=== PATIENT | female | born 1995 | race Two or more races ===

== ENCOUNTER 2019-03-08 12:30 | Emergency (ER) | payer OTHER ==
[2019-03-08 12:44] VITALS: BP 136/79
[2019-03-08] MEDS ORDERED: NORMAL SALINE 1000 ML 1,000 ML IV ONE (13:31)
[2019-03-08] MEDS ORDERED: ONDANSETRON HCL INJ/PF 4 MG/2 ML SDV IV ONE (13:31)
[2019-03-08] MEDS ORDERED: DICYCLOMINE HCL 20 MG TABLET PO ONE (13:31)
--- NOTE | 2019-03-08 13:33 | ER Document Report ---
ED Medical Screen (RME) - General Chief Complaint: Diarrhea Stated Complaint: BODY ACHES,DIARRHEA,NAUSEA Time Seen by Provider: 03/08/19 13:28 - HPI Notes: 03/08/19 13:31 Patient is a 23-year-old female with no significant past medical history who presents c/o n/v/d intermittent cramps x1-2 days. No fever, cp, sob, cough. I have treated and performed a rapid initial assessment of this patient. A comprehensive ED assessment and evaluation of the patient, analysis of test results and completion of medical decision making process will be conducted by additional ED providers. PHYSICAL EXAMINATION: GENERAL: Well-appearing, well-nourished and in no acute distress. A&Ox4. Answers questions appropriately. Abdomen: Limited exam in triage, grossly nontender and soft throughout. - Related Data Allergies/Adverse Reactions: No Known Allergies Allergy (Verified 03/08/19 13:28) Physical Exam - Vital signs Vitals: Temp Pulse Resp BP Pulse Ox 98.8 F 110 H 18 136/79 H 99 03/08/19 12:43 03/08/19 12:43 03/08/19 12:43 03/08/19 12:43 03/08/19 12:43 Course - Vital Signs Vital signs: Temp Pulse Resp BP Pulse Ox 98.8 F 110 H 18 136/79 H 99 03/08/19 12:43 03/08/19 12:43 03/08/19 12:43 03/08/19 12:43 03/08/19 12:43
--- NOTE | 2019-03-08 13:37 | ER Document Report ---
ED General - General Chief Complaint: Nausea/Vomiting/Diarrhea Stated Complaint: BODY ACHES,DIARRHEA,NAUSEA Time Seen by Provider: 03/08/19 13:28 Mode of Arrival: Ambulatory Information source: Patient - HPI Onset/Duration: Gradual Quality of pain: No pain Severity: Moderate Pain Level: 0 Associated symptoms: Body/muscle aches, Diarrhea, Nausea, Vomiting, Weakness Relieved by: Denies Similar symptoms previously: No Recently seen / treated by doctor: No Notes: Patient reports that post New Year's [place] celebration the following day she noted generalized weakness nausea vomiting and diarrhea. Denies any high fever or chills. Denies any pain at this time. Patient felt generally weak. - Related Data Allergies/Adverse Reactions: No Known Allergies Allergy (Verified 03/08/19 13:28) Past Medical History - Social History Smoking Status: Current Every Day Smoker Frequency of alcohol use: Social Lives with: Family Family History: Reviewed & Not Pertinent Patient has suicidal ideation: No Patient has homicidal ideation: No Review of Systems - Review of Systems Constitutional: See HPI, Malaise, Weakness Gastrointestinal: See HPI, Diarrhea, Nausea, Vomiting Physical Exam - Vital signs Vitals: Temp Pulse Resp BP Pulse Ox 98.8 F 110 H 18 136/79 H 99 03/08/19 12:43 03/08/19 12:43 03/08/19 12:43 03/08/19 12:43 03/08/19 12:43 Interpretation: Normal - General General appearance: Appears well, Alert - HEENT Head: Normocephalic, Atraumatic Eyes: Normal Pupils: PERRL - Respiratory Respiratory status: No respiratory distress Chest status: Nontender Breath sounds: Normal Chest palpation: Normal - Cardiovascular Rhythm: Regular Heart sounds: Normal auscultation Murmur: No - Abdominal Inspection: Normal Distension: No distension Bowel sounds: Normal Tenderness: Nontender Organomegaly: No organomegaly - Back Back: Normal, Nontender - Extremities General upper extremity: Normal inspection, Nontender, Normal color, Normal ROM, Normal temperature General lower extremity: Normal inspection, Nontender, Normal color, Normal ROM, Normal temperature, Normal weight bearing. No: Shahram's sign - Neurological Neuro grossly intact: Yes Cognition: Normal Orientation: AAOx4 [place] Coma Scale Eye Opening: Spontaneous [place] Coma Scale Verbal: Oriented [place] Coma Scale Motor: Obeys Commands [place] Coma Scale Total: 15 Speech: Normal Motor strength normal: LUE, RUE, LLE, RLE Sensory: Normal - Psychological Associated symptoms: Normal affect, Normal mood - Skin Skin Temperature: Warm Skin Moisture: Dry Skin Color: Normal Course - Re-evaluation Re-evalutation: 03/08/19 17:10 After IV hydration of liter of normal saline 500 mL bag of D5 LR patient is feeling much better ambulatory in the emergency department with not showing any signs of weakness or distress. Patient a stood up without having any dizziness or ataxia. Patient states she feels much better and is ready to go home at this time. - Vital Signs Vital signs: Temp Pulse Resp BP Pulse Ox 98.8 F 110 H 18 136/79 H 99 03/08/19 12:43 03/08/19 12:43 03/08/19 12:43 03/08/19 12:43 03/08/19 12:43 - Laboratory Result Diagrams: 03/08/19 13:50 03/08/19 13:50 Laboratory results interpreted by me: 03/08/19 03/08/19 13:50 13:50 RDW 16.1 H Urine Protein 100 H Urine Ketones 80 H Urine Blood LARGE H Leukocyte Esterase Rfl LARGE H Discharge - Discharge Clinical Impression: Dehydration, Gastroenteritis and colitis, viral Condition: Stable Disposition: HOME, SELF-CARE Additional Instructions: Gastroenteritis You most likely have gastroenteritis. This is an irritation of the stomach and intestinal tract. It's usually caused by a virus, but can also be caused by bacteria, toxins that cause food poisoning, or excessive alcohol intake. Symptoms may include fever, painful abdominal cramps, nausea, vomiting, and diarrhea. Start with small amounts (two to six ounces) of clear liquids (soft drinks, herb teas, broth, etc). Try to take fluids frequently even if you are vomiting, to prevent dehydration. When liquids are being consumed successfully, advance to small amounts of bland food (mashed potato, toast) for 6 - 12 hours. Gastroenteritis rarely requires medication. It goes away by itself. Use good handwashing so you don't spread germs. Wash underwear in very hot water. If symptoms are severe, talk to the doctor. Call your physician if blood appears in your vomitus or stool, if vomiting lasts longer than 24 hours, if the abdominal pain worsens or becomes localized to one area, or if you develop high fever. Forms: Return to Work
[2019-03-08 14:14] LABS: ABSOLUTE BASOPHILS # (AUTO) 0.1 10^3/uL (0.0-0.2); ABSOLUTE EOSINOPHILS # (AUTO) 0.1 10^3/uL (0.0-0.6); ABSOLUTE LYMPHOCYTES (AUTO) 1.8 10^3/uL (0.5-4.7); ABSOLUTE MONOCYTES (AUTO) 0.7 10^3/uL (0.1-1.4); ABSOLUTE NEUT (AUTO) 6.6 10^3/uL (1.7-8.2); BASOPHILS % (AUTO) 0.9 % (0-2); HEMATOCRIT 43.9 % (36.0-47.0); HEMOGLOBIN 15.1 g/dL (12.0-15.5); LYMPHOCYTES % (AUTO) 19.2 % (13-45); MEAN CORPUSCULAR HEMOGLOBIN 30.7 pg (27.0-33.4); MEAN CORPUSCULAR HGB CONC 34.4 g/dL (32.0-36.0); MEAN CORPUSCULAR VOLUME 90 fl (80-97); MONOCYTES % (AUTO) 7.3 % (3-13); PLATELET COUNT 224 10^3/uL (150-450); RED CELL DISTRIBUTION WIDTH 16.1 % (11.5-14.0); SEGMENTED NEUTROPHILS % (AUTO) 71.6 % (42-78); TOTAL CELLS COUNTED % (AUTO) 100 %; WHITE BLOOD COUNT 9.2 10^3/uL (4.0-10.5)
[2019-03-08 14:26] LABS: AMORPHOUS SEDIMENT,URINE TRACE /HPF; APPEARANCE,URINE CLOUDY; BILIRUBIN,URINE NEGATIVE (NEGATIVE); COLOR,URINE YELLOW; GLUCOSE, URINE NEGATIVE (NEGATIVE); KETONES,URINE 80 mg/dL (NEGATIVE); PROTEIN,URINE 100 mg/dL (NEGATIVE); URINE SPECIFIC GRAVITY 1.021; UROBILINOGEN,URINE NEGATIVE mg/dL (<2.0)
[2019-03-08 14:33] LABS: ALBUMIN 4.6 g/dL (3.5-5.0); ALKALINE PHOSPHATASE 103 U/L (38-126); ANION GAP 12 (5-19); ASPARTATE AMINO TRANSFERASE 23 U/L (14-36); BILIRUBIN,DIRECT 0.2 mg/dL (0.0-0.4); BILIRUBIN,TOTAL 1.2 mg/dL (0.2-1.3); BLOOD UREA NITROGEN 11 mg/dL (7-20); CALCIUM 9.9 mg/dL (8.4-10.2); CARBON DIOXIDE 25 mmol/L (22-30); CHLORIDE 106 mmol/L (98-107); GLUCOSE 79 mg/dL (75-110); POTASSIUM 4.6 mmol/L (3.6-5.0)
[2019-03-08] MEDS ORDERED: DEXTROSE 5%-1/2 NORMAL SALINE 500 ML IV ONE (16:00)
== END 2019-03-08 17:20 | disposition home or self-care (01) ==
LOC: ER 12:30
DX: A08.4 Viral intestinal infection, unspecified (principal); E86.0 Dehydration; R11.2 Nausea with vomiting, unspecified; R19.7 Diarrhea, unspecified; M79.10 Myalgia, unspecified site; R53.1 Weakness; F17.200 Nicotine dependence, unspecified, uncomplicated; R53.81 Other malaise
CPT/HCPCS: 99284; 96361; 96374; 36415; 83690; 85025; 81025; 80053; 81001; J3490; J2405; J7070; J7030

== ENCOUNTER 2019-05-22 11:16 | Emergency (ER) | payer OTHER ==
--- NOTE | 2019-05-22 11:50 | ER Document Report ---
ED Medical Screen (RME) - General Chief Complaint: Chest Pain Stated Complaint: COUGH/CHEST TIGHTNESS/CHILLS Time Seen by Provider: 05/22/19 11:47 Mode of Arrival: Ambulatory Information source: Patient Notes: 24-year-old female presents to ED for complaint of chest heaviness cough for the last 2 to 3 days. The does have a rash to the left side of her chest/upper abdomen. It does not cross midline but it is in one circular area. Is not herpetiform vesicles red. She has not had any fevers. Denies any fevers denies any runny nose denies any nausea or vomiting. Last menstrual period May 05 I have greeted and performed a rapid initial assessment of this patient. A comprehensive ED assessment and evaluation of the patient, analysis of test results and completion of medical decision making process will be conducted by an additional ED providers. - Related Data Allergies/Adverse Reactions: No Known Allergies Allergy (Verified 03/08/19 13:28) Physical Exam - Vital signs Vitals: Temp Pulse Resp BP Pulse Ox 98.3 F 67 18 124/79 98 05/22/19 11:43 05/22/19 11:43 05/22/19 11:43 05/22/19 11:43 05/22/19 11:43 Course - Vital Signs Vital signs: Temp Pulse Resp BP Pulse Ox 98.3 F 67 18 124/79 98 05/22/19 11:43 05/22/19 11:43 05/22/19 11:43 05/22/19 11:43 05/22/19 11:43
[2019-05-22] MEDS ORDERED: ASPIRIN 81 MG TABLET, CHEWABLE PO ONE (11:53)
--- NOTE | 2019-05-22 12:13 | RADIOLOGY REPORT (SQ) ---
EXAM DESCRIPTION: CHEST 2 VIEWS COMPLETED DATE/TIME: 05/22/2019 12:02 pm REASON FOR STUDY: Chest heaviness COMPARISON: None. EXAM PARAMETERS: NUMBER OF VIEWS: two views TECHNIQUE: Digital Frontal and Lateral radiographic views of the chest acquired. RADIATION DOSE: NA LIMITATIONS: none FINDINGS: LUNGS AND PLEURA: No opacities, masses or pneumothorax. No pleural effusion. MEDIASTINUM AND HILAR STRUCTURES: No masses or contour abnormalities. HEART AND VASCULAR STRUCTURES: Heart normal size. No evidence for failure. BONES: No acute findings. HARDWARE: None in the chest. OTHER: No other significant finding. IMPRESSION: NO ACUTE RADIOGRAPHIC FINDING IN THE CHEST. TECHNICAL DOCUMENTATION: JOB ID: [id number] 2010 [employer]- All Rights Reserved Reading location - IP/workstation name: [email or web address]
[2019-05-22 12:35] LABS: ABSOLUTE EOSINOPHILS # (AUTO) 0.1 10^3/uL (0.0-0.6); ABSOLUTE LYMPHOCYTES (AUTO) 1.8 10^3/uL (0.5-4.7); ABSOLUTE MONOCYTES (AUTO) 0.5 10^3/uL (0.1-1.4); ABSOLUTE NEUT (AUTO) 3.5 10^3/uL (1.7-8.2); BASOPHILS % (AUTO) 0.8 % (0-2); EOSINOPHILS % (AUTO) 1.1 % (0-6); HEMATOCRIT 41.8 % (36.0-47.0); LYMPHOCYTES % (AUTO) 30.2 % (13-45); MEAN CORPUSCULAR HEMOGLOBIN 30.1 pg (27.0-33.4); MEAN CORPUSCULAR HGB CONC 33.5 g/dL (32.0-36.0); MEAN CORPUSCULAR VOLUME 90 fl (80-97); MONOCYTES % (AUTO) 8.7 % (3-13); PLATELET COUNT 229 10^3/uL (150-450); RED BLOOD COUNT 4.65 10^6/uL (3.72-5.28); RED CELL DISTRIBUTION WIDTH 14.7 % (11.5-14.0); SEGMENTED NEUTROPHILS % (AUTO) 59.2 % (42-78); TOTAL CELLS COUNTED % (AUTO) 100 %; WHITE BLOOD COUNT 5.9 10^3/uL (4.0-10.5)
[2019-05-22 12:57] LABS: ALBUMIN 4.3 g/dL (3.5-5.0); ALKALINE PHOSPHATASE 88 U/L (38-126); ANION GAP 8 (5-19); ASPARTATE AMINO TRANSFERASE 19 U/L (14-36); BILIRUBIN,TOTAL 0.6 mg/dL (0.2-1.3); BLOOD UREA NITROGEN 10 mg/dL (7-20); CALCIUM 9.2 mg/dL (8.4-10.2); CARBON DIOXIDE 26 mmol/L (22-30); CHLORIDE 105 mmol/L (98-107); GLUCOSE 84 mg/dL (75-110); TOTAL PROTEIN 7.3 g/dL (6.3-8.2)
--- NOTE | 2019-05-22 14:34 | EKG REPORT ---
SEVERITY:- NORMAL ECG - SINUS RHYTHM : Confirmed by: Archana Escalona MD 22-May-2019 14:33:56
--- NOTE | 2019-05-22 15:41 | ER Document Report ---
ED General - General Chief Complaint: Chest Pain Stated Complaint: COUGH/CHEST TIGHTNESS/CHILLS Time Seen by Provider: 05/22/19 11:47 Mode of Arrival: Ambulatory Information source: Patient Notes: This 24-year-old female presents emergency department with complaints of chest feeling heavy with intermittent chest sharpness to the bilateral sides of her chest for the past 2 to 3 days. Denies fever nausea vomiting diarrhea. Denies shortness of breath. Denies recent cold symptoms. Did not receive the flu vaccine this year. She reports no change in diet no recent trip overseas. Also complains of a rash to her abdomen that started about a week ago. Denies recent change in lotions. No recent exposures to animals. Patient denies history of cardiac disease. Lives with her boyfriend he does not have a rash. - HPI Onset: Other - 2-3 days Onset/Duration: Intermittent Quality of pain: Sharp Associated symptoms: None Exacerbated by: Denies Relieved by: Denies Similar symptoms previously: No Recently seen / treated by doctor: No - Related Data Allergies/Adverse Reactions: No Known Allergies Allergy (Verified 03/08/19 13:28) Past Medical History - General Information source: Patient Last Menstrual Period: May 06, 2019 - Social History Smoking Status: Current Every Day Smoker Cigarette use (# per day): Yes Chew tobacco use (# tins/day): No Drug Abuse: None Occupation: None Lives with: Friend Family History: Reviewed & Not Pertinent, DM, Thyroid Disfunction. denies: CAD Patient has suicidal ideation: No Patient has homicidal ideation: No - Medical History Medical History: Negative Surgical Hx: Negative Review of Systems - Review of Systems Notes: Review HPI for review of systems., All other systems negative Physical Exam - Vital signs Vitals: Temp Pulse Resp BP Pulse Ox 98.3 F 67 18 124/79 98 05/22/19 11:43 05/22/19 11:43 05/22/19 11:43 05/22/19 11:43 05/22/19 11:43 - Notes Notes: PHYSICAL EXAMINATION: GENERAL: Well-appearing and in no acute distress HEAD: Atraumatic, normocephalic. EYES: Pupils equal round and reactive to light, extraocular movements intact, sclera anicteric, conjunctiva are normal. ENT: nares patent, oropharynx clear without exudates. Moist mucous membranes. NECK: Normal range of motion, supple without lymphadenopathy LUNGS: CTAB and equal. No wheezes rales or rhonchi. denies cp with palpation HEART: Regular rate and rhythm without murmurs ABDOMEN: Soft, no tenderness. No guarding, no rebound BACK: Denies pain EXTREMITIES: Normal range of motion, no pitting edema. No cyanosis. NEUROLOGICAL: Cranial nerves grossly intact. Normal sensory/motor exams. PSYCH: Normal mood, normal affect. SKIN: Warm, Dry, normal turgor, circular flat rash noted to upper mid. abdomen- no open sores no wounds no vesicles Course - Re-evaluation Re-evalutation: 05/22/19 16:06 Patient reports since to the emergency department with complaints of chest tightness and intermittent sharp pains to the bilateral sides of her chest for the past 2 to 3 days. Denies fever nausea vomiting diarrhea. Denies shortness of breath. She also complains of a flat circular rash to her mid upper abdomen. Denies history of allergies. Reports no recent change in diet or recent exposure to animals or recent new lotions. All labs unremarkable, negative troponin heart score =1, EKG negative no ST elevation no T wave inversion. Chest x-ray negative. Rash is flat no vesicles. Patient was instructed on all results. Instructed to follow-up with her primary care provider for recheck. She was also instructed to avoid itching her rash take Benadryl as indicated and cool packs to reduce itching. She was instructed to return for any concerns. She verbalized understanding. Chest X-Ray 05/22/19 11:53 IMPRESSION: NO ACUTE RADIOGRAPHIC FINDING IN THE CHEST. Laboratory 05/22/19 05/22/19 05/22/19 12:05 12:05 12:05 WBC 5.9 RBC 4.65 Hgb 14.0 Hct 41.8 MCV 90 MCH 30.1 MCHC 33.5 RDW 14.7 H Plt Count 229 Lymph % (Auto) 30.2 [place] % (Auto) 8.7 Eos % (Auto) 1.1 Baso % (Auto) 0.8 Absolute Neuts (auto) 3.5 Absolute Lymphs (auto) 1.8 Absolute Monos (auto) 0.5 Absolute Eos (auto) 0.1 Absolute Basos (auto) 0.0 Seg Neutrophils % 59.2 Sodium 138.8 Potassium 4.0 Chloride 105 Carbon Dioxide 26 Anion Gap 8 BUN 10 Creatinine 0.74 Est GFR ( Amer) > 60 Est GFR (MDRD) Non-Af > 60 Glucose 84 Calcium 9.2 Total Bilirubin 0.6 Direct Bilirubin 0.0 Neonat Total Bilirubin Not Reportable Neonat Direct Bilirubin Not Reportable Neonat Indirect Bili Not Reportable AST 19 ALT 12 Alkaline Phosphatase 88 Troponin I Total Protein 7.3 Albumin 4.3 Serum HCG, Qual NEGATIVE 05/22/19 12:05 WBC RBC Hgb Hct MCV MCH MCHC RDW Plt Count Lymph % (Auto) [place] % (Auto) Eos % (Auto) Baso % (Auto) Absolute Neuts (auto) Absolute Lymphs (auto) Absolute Monos (auto) Absolute Eos (auto) Absolute Basos (auto) Seg Neutrophils % Sodium Potassium Chloride Carbon Dioxide Anion Gap BUN Creatinine Est GFR ( Amer) Est GFR (MDRD) Non-Af Glucose Calcium Total Bilirubin Direct Bilirubin Neonat Total Bilirubin Neonat Direct Bilirubin Neonat Indirect Bili AST ALT Alkaline Phosphatase Troponin I < 0.012 Total Protein Albumin Serum HCG, Qual 05/22/19 16:08 - Vital Signs Vital signs: Temp Pulse Resp BP Pulse Ox 98.3 F 67 18 124/79 98 05/22/19 11:43 05/22/19 11:43 05/22/19 11:43 05/22/19 11:43 05/22/19 11:43 - Laboratory Result Diagrams: 05/22/19 12:05 05/22/19 12:05 Laboratory results interpreted by me: 05/22/19 12:05 RDW 14.7 H - Diagnostic Test Radiology reviewed: Image reviewed, Reports reviewed Discharge - Discharge Clinical Impression: Tightness in chest, Rash Condition: Stable Disposition: HOME, SELF-CARE Instructions: Chest Wall Pain ([facility]), Chest Pain of Unclear Cause ([facility]), Use of Diphenhydramine, Family Physicians / Practices, [facility] Additional Instructions: *You have been evaluated for chest tightness, rash *Your labs were unremarkable today, your chest x-ray was negative for pneumonia. *Avoid itching the rash, take Benadryl as indicated, apply cool packs *Follow up with a primary care provider within 3-5 days *Return to ED for worsening condition, changes, needs, difficulty breathing, concerns Forms: Smoking Cessation Education
[2019-05-22 16:05] VITALS: BP 123/77
== END 2019-05-22 16:10 | disposition home or self-care (01) ==
LOC: ER 11:16
DX: R07.9 Chest pain, unspecified (principal); R21 Rash and other nonspecific skin eruption; R05 Cough; R68.83 Chills (without fever); F17.210 Nicotine dependence, cigarettes, uncomplicated
CPT/HCPCS: 36415; 71046; 80053; 84484; 84703; 85025; 93005; 93010; 99285